=== PATIENT | male | born 1965 | race Caucasian/White ===

== ENCOUNTER 2019-03-19 09:54 | Outpatient (CLI) | payer OTHER | END 2019-03-19 23:59 | disposition home or self-care (01) | LOC: MERGE 09:54 → LAB 09:54 → RAD 23:59 | PROVIDERS: ATTEND Neurological Surgery | DX: Z01.812 Encounter for preprocedural laboratory examination (principal); M47.22 Other spondylosis with radiculopathy, cervical region; M25.78 Osteophyte, vertebrae; M48.02 Spinal stenosis, cervical region | CPT/HCPCS: 36415; 72050; 80048; 85025; 85610; 85730; 93005 ==

== ENCOUNTER 2020-10-12 14:28 | Emergency (ER) | payer OTHER ==
[~2020-10-12] VITALS: Ht 185.4 cm; Wt 95.4 kg
[~2020-10-12 14:28] MED LIST: ASCO100018 PO; CHOL10003 PO; DOCU-131 PO; EXEN10PE3 INJ; GLYB5TAB3 PO; HYDR-1067 PO; HYDR-3248 PO; IBUP-1223 PO; LIRA0.6P SC; LISI5TAB7 PO; METF500T17 PO; METH4TAB2 PO; METH750T87 PO; MULT-658 PO; OMEG1CAP23 PO; ONDA4TAB7 PO; TRIFLEX PO; VITA400C43 PO; [UNRECOGNIZED DRUG - OTHER]
--- NOTE | 2020-10-12 14:59 | NUR ---
TASK RN, COLLECTED AND SENT TO LAB.
[2020-10-12 15:27] VITALS: BP 157/93
--- NOTE | 2020-10-12 15:28 | NUR ---
TASK RN: 19 GAUGE IV STARTED RIGHT AC, BLOOD COLLECTED, LABELLED AND LEFT AT BEDSIDE FOR PRECISION FILER HAND, NADN, VSS, AT BEDSIDE, CALL LIGHT WITHIN REACH.
[2020-10-12] MEDS ORDERED: LOSA25TA12 PO (16:11)
[2020-10-12] MEDS ORDERED: CHRO1TAB6 PO (16:14)
[2020-10-12] MEDS ORDERED: ASPI81TA45 PO (16:15)
[2020-10-12 16:47] LABS: BASOPHILS % (AUTO) 1 % (0-1); EOSINOPHILS % (AUTO) 8 % (1-7); LYMPHOCYTES % (AUTO) 27 % (22-44); MEAN CORPUSCULAR HEMOGLOBIN 31.2 pg (27.5-34.5); MEAN CORPUSCULAR HGB CONC 34.9 g/dL (33.2-36.2); MEAN PLATELET VOLUME 9.8 fL (7.4-10.4); MONOCYTES % (AUTO) 8 % (2-9); NEUTROPHILS % (AUTO) 55 % (42-75); PLATELET COUNT 192 x10^3/uL (130-400); RED BLOOD COUNT 4.94 x10^6/uL (4.38-5.82); RED CELL DISTRIBUTION WIDTH 12.9 % (9.4-14.8)
[2020-10-12 16:50] LABS: MD NO
[2020-10-12 16:55] LABS: ALBUMIN 3.9 g/dL (3.4-5.0); ANION GAP 7 mmol/L (5-15); CHLORIDE 108 mmol/L (98-107)
[2020-10-12 16:58] LABS: ALANINE AMINOTRANSFERASE 52 U/L (12-78); ALKALINE PHOSPHATASE 77 U/L (45-117); BILIRUBIN,TOTAL 0.3 mg/dL (0.2-1.0); CREATININE 0.87 mg/dL (0.7-1.3); TOTAL PROTEIN 7.1 g/dL (6.4-8.2)
[2020-10-12 17:44] LABS: MICROSCOPIC NOT IND
== END 2020-10-12 18:34 | disposition home or self-care (01) ==
LOC: ED 18:30
DX: R05 Cough (principal); S60.947 Unspecified superficial injury of left little finger; E11.9 Type 2 diabetes mellitus without complications; I10 Essential (primary) hypertension; X58.XXXD Exposure to other specified factors, subsequent encounter
CPT/HCPCS: 36415; 71045; 80053; 81003; 83605; 84145; 85025; 87040; 99284

== ENCOUNTER → 2020-11-13 | Outpatient (CLI) | payer OTHER ==
[~2020-11-13] MED LIST changes: +ASPI81TA45 PO; +CHRO1TAB6 PO; +LOSA25TA12 PO
[2020-11-13 07:25] LABS: BASOPHILS % (AUTO) 1 % (0-1); EOSINOPHILS % (AUTO) 6 % (1-7); LYMPHOCYTES % (AUTO) 24 % (22-44); MEAN CORPUSCULAR HEMOGLOBIN 30.9 pg (27.5-34.5); MEAN CORPUSCULAR HGB CONC 34.1 g/dL (33.2-36.2); MEAN PLATELET VOLUME 8.9 fL (7.4-10.4); MONOCYTES % (AUTO) 10 % (2-9); NEUTROPHILS % (AUTO) 60 % (42-75); PLATELET COUNT 208 x10^3/uL (130-400); RED BLOOD COUNT 5.06 x10^6/uL (4.38-5.82); RED CELL DISTRIBUTION WIDTH 13.1 % (9.4-14.8)
[2020-11-13 07:26] LABS: MD NO
[2020-11-13 07:35] LABS: ALBUMIN 4.1 g/dL (3.4-5.0); ANION GAP 5 mmol/L (5-15); CALCIUM 8.9 mg/dL (8.5-10.1); CHLORIDE 107 mmol/L (98-107)
[2020-11-13 07:46] LABS: ALANINE AMINOTRANSFERASE 58 U/L (12-78); ALKALINE PHOSPHATASE 77 U/L (45-117); BILIRUBIN,TOTAL 0.5 mg/dL (0.2-1.0); CHOL/HDL RATIO 1.9; CHOLESTEROL, TOTAL 171 mg/dL (140-239); CREATININE 1.06 mg/dL (0.7-1.3); HDL CHOL % 53 % (26-37); HDL CHOLESTEROL (DIRECT) 91 mg/dL (40-60); LDL CHOLESTEROL,CALCULATED 72 mg/dL (54-169); LDL/HDL RATIO 0.8 (0.5-3.0); TOTAL PROTEIN 7.1 g/dL (6.4-8.2); TRIGLYCERIDES 42 mg/dL (50-200); VLDL CHOLESTEROL 8 mg/dL (0-25)
== END | disposition home or self-care (01) ==
LOC: LAB 07:04
PROVIDERS: ATTEND Family Medicine
DX: I10 Essential (primary) hypertension (principal); E11.65 Type 2 diabetes mellitus with hyperglycemia; M54.40 Lumbago with sciatica, unspecified side; K64.9 Unspecified hemorrhoids
CPT/HCPCS: 36415; 80053; 80061; 83036; 84153; 84443; 85025; G0103